=== PATIENT | male | born 1965 | race Caucasian/White ===

== ENCOUNTER 2017-11-02 16:22 | Observation (INO) ==
[2017-11-02 16:41] VITALS: BMI 25.0
[2017-11-02 16:58] LABS: BASOPHILS % (AUTO) 0.4 % (0.2-1.0); EOSINOPHILS # (AUTO) 0.2 x10^3/uL (0.0-0.2); EOSINOPHILS % (AUTO) 1.5 % (0.9-2.9); HEMOGLOBIN 13.6 g/dL (13.5-18.0); LYMPHOCYTES # (AUTO) 2.2 X10^3/uL (1.3-2.9); LYMPHOCYTES % (AUTO) 21.1 % (21.0-51.0); MEAN CORPUSCULAR HEMOGLOBIN 25.7 pg (27.0-34.0); MEAN CORPUSCULAR HGB CONC 33.1 g/dL (33.0-35.0); MEAN CORPUSCULAR VOLUME 77.5 fL (80.0-100.0); MEAN PLATELET VOLUME 8.8 fL (7.4-11.0); MONOCYTES # (AUTO) 0.6 x10^3/uL (0.3-0.8); MONOCYTES % (AUTO) 6.2 % (0.0-13.0); NEUTROPHILS # (AUTO) 7.3 x10^3/uL (2.2-4.8); NEUTROPHILS % (AUTO) 70.8 % (42.0-75.0); PLATELET COUNT 205 X10^3/uL (150.0-450.0); RED BLOOD COUNT 5.29 X10^6/uL (4.7-6.0); RED CELL DISTRIBUTION WIDTH 18.3 % (11.6-16.5); WHITE BLOOD COUNT 10.3 X10^3/uL (3.6-10.0)
[2017-11-02 17:02] LABS: BLOOD UREA NITROGEN 18 mg/dL (7-18); CALCIUM 9.3 mg/dL (8.5-10.1); CARBON DIOXIDE 25.6 mmol/L (21-32); CHLORIDE 100 mmol/L (98-107); COR NA(FOR HYPERGLY) 141 mmol/L (136-145); CREATININE 1.45 mg/dL (0.70-1.30); SODIUM 132 mmol/L (136-145); TROPONIN I < 0.02 ng/mL (0-1.5); eGFR NON BLACK RACES 54 (>60)
--- NOTE | 2017-11-02 17:03 | RAD ---
Examination: Portable AP chest History: Left chest pain Findings: Normal heart size with sternal wires and pacemaker. The lungs are essentially clear. There is no evidence for pleural fluid or pneumothorax. Impression: Postsurgical findings, no acute abnormality noted. Reported By:
[2017-11-02] MEDS ORDERED: MORPHINE SULFATE INJ 4 MG ONE ×2 (17:08→18:34)
[2017-11-02] MEDS ORDERED: MORPHINE SULFATE INJ 4 MG IVP ONE ×2 (17:08→18:32)
[2017-11-02 17:16] LABS: ALANINE AMINOTRANSFERASE 32 Units/L (12-78); ALBUMIN 4.3 g/dL (3.4-5.0); ALKALINE PHOSPHATASE 62 Units/L (46-116); ASPARTATE AMINO TRANSFERASE 19 Units/L (15-37); CKMB % 1.8 % (<4); CREATINE KINASE 82 Units/L (39-308); CREATINE KINASE MB 1.5 ng/mL (0-4.0); MAGNESIUM 1.7 mg/dL (1.7-2.9)
[2017-11-02 17:37] LABS: ANISOCYTOSIS SLIGHT; HYPOCHROMASIA SLIGHT; MICROCYTOSIS SLIGHT; PLATELET MORPHOLOGY COMMENT NORMAL (NORMAL)
[2017-11-02] MEDS ORDERED: HumuLIN R SC PRN (18:37)
[2017-11-02] MEDS ORDERED: HumuLIN R SUBCUT PRN (18:38)
--- NOTE | 2017-11-02 18:43 | DR.CP ---
HPI Time Seen Time seen: 18:15 PCP Primary Care Physician: NFD Complaint Chief Complaint Doctor Comments: Patient states that he has had mid-sternal chest pain radiating to his left neck and arm this AM. He admits to taking 5 NTG w/o relief of pain. He admits to double by pass surgery at [facility] 2017. Open heart surgery 7 years ago and six stents 12-14 years ago, pacemaker 2013. Recently moved to area from [place]. Chief Complaint:: PT C/O LT SIDED CHEST PAIN RADIATING TO LT SIDE OF NECK AND DOWN LT ARM. PT STATES THE PAIN STARTED THIS AM. PT HAS TAKEN X2 ROUNDS OF NITRO AND ASA EARLIER WITHOUT ANY CHANGES Source History Provided: Patient Mode of Arrival Mode of Arrival: Ambulatory Timing Onset of Chief Complaint: 11/02/17 Location Chest Pain Radiation Location: Left Jaw and Left Arm Associated Signs and Symptoms Associated Signs and Symptoms: Shortness of Breath and Diaphoresis PMH PMH Past Medical History: Yes Past Medical History: Hypertension and OK Past Surgical History: Yes Surgical History: Angioplasty/Stents and CABG/Valve Surgery Past Surgical History Comment: PACE MAKER Family History History of Family Medical Conditions: No Social History Does any household member use tobacco: No Alcohol Use: None Do you use any recreational Drugs:: No Lives With: Family Lives Where: Home infectious screening In the last 2 months have you had wt loss of >10#?: NO Have you had fever, night sweats or hemotysis?: No Have you traveled outside the country in the last 6 months?: No Isolation: Standard ROS Review of Systems Constitutional: No Symptoms Reported and Weakness; negative Diaphoresis Eyes: No Symptoms Reported; negative Blurred Vision ENTM: No Symptoms Reported Respiratoy: No Symptoms Reported and See HPI Gastrointestinal/Abdominal: No Symptoms Reported and See HPI Genitourinary: No Symptoms Reported Neurological: No Symptoms Reported Musculoskeletal: No Symptoms Reported Integumentary: No Symptoms Reported Hematologic/Lymphatic: No Symptoms Reported and See HPI Endocrine: No Symptoms Reported Psychiatric: No Symptoms Reported PE Vitals Vitals: Temperature 98.8 F Pulse Rate [Right Radial] 98 Pulse Rate 11 Respiratory Rate 18 Blood Pressure [Right Arm] 124/70 Blood Pressure 158/126 O2 Sat by Pulse Oximetry 97 General Limitations: No Limitations General Appearance: Alert, In No Apparent Distress, Anxious and In Distress ( admits to mid-sternal chest pain 11/30) Head Head Exam: Normal Inspection, Atraumatic and Normocephalic Eyes Eye exam: Normal Appearance, PERRL and EOMI; negative Miosis and Mydrasis ENT ENT Exam: Normal Exam, Normal Oropharynx, Mucous Membranes Moist, Mucous Membranes Dry and TM's Normal Bilaterally Chest Chest Inspection: Normal Inspection and Symmetric Chest Wall Rise Respiratory Respiratory Exam: Normal Lung Sounds Bilat Respiratory Exam: Bilateral: Clear to Auscultation Cardiovascular Cardiovascular Exam: Regular Rate and Normal Rhythm Abdominal Exam Abdominal Exam: Normal Inspection, Normal Bowel Sounds and Soft Abdominal Tenderness: negative RUQ, RLQ and LUQ Extremities Extremities Exam: Normal Inspection, Full ROM and Normal Capillary Refill; negative Tenderness Back Back Exam: Normal Inspection; negative Full ROM, Tenderness, Paraspinal Tenderness, Vertebral Tenderness and Rashes Neurologic Neurological Exam: Alert, Oriented X3 and CN II-XII Intact; negative Motor Sensory Deficit and Reflexes Normal Psychiatric Psychiatric Exam: Normal Affect, Depressed, Agitated and Anxious; negative Homicidal Ideation and Suicidal Ideation Skin Skin Exam: Warm, Dry, Intact and Normal Color COURSE Treatment Treatment: Pain management with morphine ROR Labs Reviewed Laboratory Results Reviewed?: Yes Result Diagrams: 11/02/17 16:30 11/02/17 16:30 Laboratory: WBC 10.3 X10^3/uL (3.6-10.0) H 11/02/17 16:30 RBC 5.29 X10^6/uL (4.7-6.0) 11/02/17 16:30 Hgb 13.6 g/dL (13.5-18.0) 11/02/17 16:30 Hct 41.0 % (42.0-54.0) L 11/02/17 16:30 MCV 77.5 fL (80.0-100.0) L 11/02/17 16:30 MCH 25.7 pg (27.0-34.0) L 11/02/17 16:30 MCHC 33.1 g/dL (33.0-35.0) 11/02/17 16:30 RDW 18.3 % (11.6-16.5) H 11/02/17 16:30 Plt Count 205 X10^3/uL (150.0-450.0) 11/02/17 16:30 Plt Count Comment Adequate (ADEQUATE) 11/02/17 16:30 MPV 8.8 fL (7.4-11.0) 11/02/17 16:30 Neut % (Auto) 70.8 % (42.0-75.0) 11/02/17 16:30 Lymph % (Auto) 21.1 % (21.0-51.0) 11/02/17 16:30 [place] % (Auto) 6.2 % (0.0-13.0) 11/02/17 16:30 Eos % (Auto) 1.5 % (0.9-2.9) 11/02/17 16:30 Baso % (Auto) 0.4 % (0.2-1.0) 11/02/17 16:30 Neut # (Auto) 7.3 x10^3/uL (2.2-4.8) H 11/02/17 16:30 Lymph # (Auto) 2.2 X10^3/uL (1.3-2.9) 11/02/17 16:30 [place] # (Auto) 0.6 x10^3/uL (0.3-0.8) 11/02/17 16:30 Eos # (Auto) 0.2 x10^3/uL (0.0-0.2) 11/02/17 16:30 Baso # (Auto) 0.0 X10^3/uL (0.0-0.1) 11/02/17 16:30 Absolute Nucleated RBC 0.0 /100WBC 11/02/17 16:30 Plt Morphology Comment Normal (NORMAL) 11/02/17 16:30 RBC Morphology Abnormal (NORMAL) 11/02/17 16:30 Hypochromasia Slight A 11/02/17 16:30 Anisocytosis Slight A 11/02/17 16:30 Microcytosis Slight A 11/02/17 16:30 INR Target Range - 11/02/17 16: INR 0.85 (0.8-1.3) 11/02/17 16:30 APTT 27.7 SECONDS (22.9-36.5) 11/02/17 16:30 PTT Comment - 11/02/17 16:30 D-Dimer 216 ng/mL (0-400) 11/02/17 16:30 Sodium 132 mmol/L (136-145) L 11/02/17 16:30 Corrected Sodium 141 mmol/L (136-145) 11/02/17 16:30 Potassium 4.3 mmol/L (3.5-5.1) 11/02/17 16:30 Chloride 100 mmol/L (98-107) 11/02/17 16:30 Carbon Dioxide 25.6 mmol/L (21-32) 11/02/17 16:30 BUN 18 mg/dL (7-18) 11/02/17 16:30 Creatinine 1.45 mg/dL (0.70-1.30) H 11/02/17 16:30 Est GFR (MDRD) Af Amer > 60 (>60) 11/02/17 16:30 Est GFR (MDRD) Non-Af 54 (>60) L 11/02/17 16:30 Glucose 455 mg/dL (65-99) H 11/02/17 16:30 Hemoglobin A1c 9.2 % 11/02/17 16:30 Calcium 9.3 mg/dL (8.5-10.1) 11/02/17 16:30 Corrected Calcium TNP 11/02/17 16:30 Magnesium 1.7 mg/dL (1.7-2.9) 11/02/17 16:30 Total Bilirubin 1.20 mg/dL (0.2-1.0) H 11/02/17 16:30 AST 19 Units/L (15-37) 11/02/17 16:30 ALT 32 Units/L (12-78) 11/02/17 16:30 Alkaline Phosphatase 62 Units/L (46-116) 11/02/17 16:30 Creatine Kinase 82 Units/L (39-308) 11/02/17 16:30 CK-MB (CK-2) 1.5 ng/mL (0-4.0) 11/02/17 16:30 CK/CKMB % Calc 1.8 % (<4) 11/02/17 16:30 Troponin I < 0.02 ng/mL (0-1.5) 11/02/17 16:30 Total Protein 8.0 g/dL (6.4-8.2) 11/02/17 16:30 Albumin 4.3 g/dL (3.4-5.0) 11/02/17 16:30 Globulin 3.7 g/dL (2.5-4.5) 11/02/17 16:30 Albumin/Globulin Ratio 1.2 Ratio (1.1-2.1) 11/02/17 16:30
[2017-11-02] MEDS ORDERED: SNACK - Diabetic Appropriate PO SCH (20:00)
[2017-11-02] MEDS ORDERED: TORADOL 30 MG VIAL IVP ONE (23:13)
[2017-11-02] MEDS ORDERED: TORADOL 30 MG VIAL ONE (23:14)
[2017-11-02] MEDS ORDERED: TORADOL 30 MG VIAL IVP PRN (23:15)
[2017-11-03] MEDS ORDERED: TORADOL 30 MG VIAL IVP PRN ×2 (01:03→10:00)
[2017-11-03 03:06] LABS: CKMB % 1.5 % (<4); CREATINE KINASE 74 Units/L (39-308); CREATINE KINASE MB 1.1 ng/mL (0-4.0); TROPONIN I < 0.02 ng/mL (0-1.5)
[2017-11-03] MEDS ORDERED: HumuLIN R SUBCUT PRN (05:10)
[2017-11-03 05:37] LABS: BASOPHILS # (AUTO) 0.1 X10^3/uL (0.0-0.1); BASOPHILS % (AUTO) 0.9 % (0.2-1.0); EOSINOPHILS # (AUTO) 0.2 x10^3/uL (0.0-0.2); EOSINOPHILS % (AUTO) 2.5 % (0.9-2.9); HEMATOCRIT 37.2 % (42.0-54.0); HEMOGLOBIN 12.3 g/dL (13.5-18.0); LYMPHOCYTES % (AUTO) 26.3 % (21.0-51.0); MEAN CORPUSCULAR HEMOGLOBIN 25.6 pg (27.0-34.0); MEAN CORPUSCULAR HGB CONC 33.2 g/dL (33.0-35.0); MEAN CORPUSCULAR VOLUME 77.2 fL (80.0-100.0); MEAN PLATELET VOLUME 8.7 fL (7.4-11.0); MONOCYTES # (AUTO) 0.7 x10^3/uL (0.3-0.8); MONOCYTES % (AUTO) 8.7 % (0.0-13.0); NEUTROPHILS # (AUTO) 4.7 x10^3/uL (2.2-4.8); NEUTROPHILS % (AUTO) 61.6 % (42.0-75.0); PLATELET COUNT 194 X10^3/uL (150.0-450.0); RED BLOOD COUNT 4.82 X10^6/uL (4.7-6.0); RED CELL DISTRIBUTION WIDTH 18.6 % (11.6-16.5); WHITE BLOOD COUNT 7.7 X10^3/uL (3.6-10.0)
[2017-11-03 05:43] LABS: PLATELET MORPHOLOGY COMMENT NORMAL (NORMAL)
[2017-11-03 05:46] LABS: ALANINE AMINOTRANSFERASE 29 Units/L (12-78); ALBUMIN 3.9 g/dL (3.4-5.0); ALKALINE PHOSPHATASE 59 Units/L (46-116); ASPARTATE AMINO TRANSFERASE 13 Units/L (15-37); BLOOD UREA NITROGEN 20 mg/dL (7-18); CALCIUM 8.5 mg/dL (8.5-10.1); CARBON DIOXIDE 24.3 mmol/L (21-32); CHLORIDE 99 mmol/L (98-107); CHOL/HDL RATIO 3.8 (0.0-5.0); CHOLESTEROL 178 mg/dL (0-200); COR NA(FOR HYPERGLY) 141 mmol/L (136-145); CREATININE 1.64 mg/dL (0.70-1.30); HDL CHOLESTEROL 47 mg/dL (40-60); SODIUM 131 mmol/L (136-145); TOTAL PROTEIN 7.3 g/dL (6.4-8.2); TRIGLYCERIDES 245 mg/dL (0-150); eGFR NON BLACK RACES 47 (>60)
[2017-11-03 07:33] VITALS: BP 137/83
[2017-11-03 08:50] LABS: CKMB % 1.5 % (<4); CREATINE KINASE 73 Units/L (39-308); CREATINE KINASE MB 1.1 ng/mL (0-4.0); TROPONIN I < 0.02 ng/mL (0-1.5)
[2017-11-03] MEDS ORDERED: NORCO 10/325 TAB PO PRN (09:28)
[2017-11-03] MEDS ORDERED: NITROSTAT SL PRN (09:28)
[2017-11-03] MEDS ORDERED: ELIQUIS PO SCH (09:30)
[2017-11-03] MEDS ORDERED: ACTOS PO SCH (10:00)
[2017-11-03] MEDS ORDERED: GLUCOPHAGE XR PO SCH (10:00)
[2017-11-03] MEDS ORDERED: LOPRESSOR TAB 25 MG PO SCH (10:00)
[2017-11-03] MEDS ORDERED: ZESTRIL TAB 20 MG PO SCH (10:00)
[2017-11-03] MEDS ORDERED: PLAVIX PO SCH (10:00)
[2017-11-03] MEDS ORDERED: ASPIRIN 81 MG CHEWTAB PO SCH (10:00)
[2017-11-03] MEDS ORDERED: ZESTRIL TAB 20 MG ONE (10:02)
[2017-11-03] MEDS ORDERED: LIPITOR TAB 20 MG PO SCH (21:00)
== END 2017-11-03 10:45 | disposition home or self-care (01) ==
LOC: ER 16:22 → INTOOBSV 22:56 → OBS 22:56
PROVIDERS: ADMIT Obstetrics & Gynecology Obstetrics; ATTEND Obstetrics & Gynecology Obstetrics
DX: M79.602 Pain in left arm; E11.65 Type 2 diabetes mellitus with hyperglycemia; Z95.0 Presence of cardiac pacemaker; M54.2 Cervicalgia; R07.89 Other chest pain; R94.4 Abnormal results of kidney function studies; I10 Essential (primary) hypertension; R06.02 Shortness of breath; E78.2 Mixed hyperlipidemia; R94.31 Abnormal electrocardiogram [ECG] [EKG]
CPT/HCPCS: 36415; 71010; 71045; 80053; 80061; 82550; 82553; 83036; 83735; 84484; 85025; 85378; 85610; 85730; 93005; 93010; 96365; 96372; 96374; 96375; 99284; A4222; G0378; J1815; J1885; J2270